=== PATIENT | female | born 2000 | race Caucasian/White ===

== ENCOUNTER 2019-04-17 21:04 | Emergency (ER) | payer SELFPAY ==
[~2019-04-17] VITALS: Ht 142.2 cm; Wt 53.1 kg
[2019-04-17 21:17] VITALS: BP 135/83
--- NOTE | 2019-04-17 21:40 | NUR ---
URINE COLLECTED. SENT TO LAB
[2019-04-17 22:03] LABS: APPEARANCE,URINE CLEAR (CLEAR); BILIRUBIN,URINE SMALL (NEGATIVE); BLOOD, URINE MODERATE Ery/uL (NEGATIVE); COLOR,URINE YELLOW (YELLOW); KETONES,URINE NEGATIVE (NEGATIVE); LEUKOCYTE ESTERASE ,URINE TRACE (NEGATIVE); NITRITE, URINE POSITIVE (NEGATIVE); PROTEIN,URINE 30 mg/dl (NEGATIVE); UGLUCOSE 100 MG/DL mg/dL (NEGATIVE)
[2019-04-17 22:09] LABS: BACTERIA,URINE Few /HPF (None Seen); SQUAMOUS EPITHELIAL CELL,UR Few /HPF (None Seen)
== END 2019-04-17 22:30 | disposition home or self-care (01) ==
LOC: ER 21:12
DX: N39.0 Urinary tract infection, site not specified (principal); J40 Bronchitis, not specified as acute or chronic; H10.213 Acute toxic conjunctivitis, bilateral; D64.9 Anemia, unspecified; Z88.2 Allergy status to sulfonamides; Z60.2 Problems related to living alone
CPT/HCPCS: 81000-TC; 84703-TC; 87086-TC; 87186-TC; 87491; 87591